=== PATIENT | female | born 1990 | race African-American/Black ===

== ENCOUNTER 2017-06-12 16:26 | Emergency (ER) | payer OTHER ==
[2017-06-12 17:13] LABS: #Basophils 0.1 thou/uL (0.0-0.2); #Eosinphils 0.1 thou/uL (0.0-0.7); #Monocytes 0.5 thou/uL (0.11-0.59); #Neutrophils 2.2 thou/uL (1.40-6.50); %Basophils 1.7 % (0.0-1.0); %Eosinophils 2.2 % (0.0-10.0); %Lymphocytes 25.4 % (21.0-51.0); %Monocytes 12.4 % (0.0-10.0); Hematocrit 25.8 % (36.0-47.0); Mean Platelet Volume 7.4 fL (7.4-10.4); Red Blood Cell (RBC) Count 3.23 mill/uL (4.20-5.40); White Blood Cell (WBC) Count 3.7 thou/uL (4.8-10.8)
[2017-06-12 17:30] LABS: ALT (SGPT) 17 U/L (8-55); AST (SGOT) 19 U/L (5-34); Alkaline Phosphatase 134 U/L (40-150); Anion Gap 12 mmol/L (10-20); BUN (Urea Nitrogen) 7 mg/dL (7.0-18.7); Bilirubin, Total 0.6 mg/dL (0.2-1.2); Calc. Creatinine Clearance 0 mL/min (70-130); Calcium 8.9 mg/dL (7.8-10.44); Carbon Dioxide 23 mmol/L (22-29); Chloride 105 mmol/L (98-107); Estimated GFR-MDRD Greater than 90; Globulin 3.5 g/dL (2.4-3.5); Protein, Total 6.6 g/dL (6.0-8.3)
[2017-06-12 18:39] LABS: Bilirubin Negative (Negative); Blood, Urine Negative (Negative); Glucose, Urine (Dipstick) Negative (Negative); Ketone, Urine Negative (Negative); Nitrite Negative (Negative); Protein, Urine (Dipstick) Negative (Neg-Trace)
[2017-06-12 18:41] LABS: Bacteria/HPF 2+ HPF (None Seen); Hyaline Casts/LPF 0-3 HYALINE CAST LPF (0-3 Hyaline)
[2017-06-12 18:49] LABS: Amphetamine Not Detected (NotDetected); Methadone Not Detected (NotDetected); Methamphetamine Not Detected (NotDetected)
--- NOTE | 2017-06-12 19:49 | RAD ---
RADIOGRAPH CHEST 1 VIEW: 06/12/17 HISTORY: 26-year-old female with tachycardia. FINDINGS: There are no air space densities, pulmonary edema, pneumothorax, or cardiomegaly. The lateral costo phrenic angles are sharp. IMPRESSION: No acute cardiopulmonary findings. benjamin [] POS: [facility]
[2017-06-12] MEDS ORDERED: cefTRIAXone\\ROCEPHIN 1 GM VIAL ONE (21:15)
== END 2017-06-12 23:05 | disposition home or self-care (01) ==
LOC: ERS 16:26
DX: N39.0 Urinary tract infection, site not specified (principal); D64.9 Anemia, unspecified; F17.210 Nicotine dependence, cigarettes, uncomplicated
CPT/HCPCS: 36415; 71010; 80053; 80306; 81003; 81015; 84443; 85025; 93005; 96361; 96365; J0696

== ENCOUNTER 2018-10-30 16:59 | Emergency (ER) | payer OTHER, SELFPAY ==
[2018-10-30] MEDS ORDERED: Ibuprofen 200 MG TAB ONE (17:32)
--- NOTE | 2018-10-30 18:20 | RAD ---
LEFT ANKLE THREE VIEWS: 10/30/18 HISTORY: Left ankle pain. Ankle mortise and talar dome are intact. No acute fracture or dislocation. No evidence of joint effusion. IMPRESSION: No acute osseous abnormalities are demonstrated. POS: BST
--- NOTE | 2018-10-30 18:22 | RAD ---
LEFT FOOT THREE VIEWS: 10/30/18 HISTORY: Left foot pain. FINDINGS: Lisfranc joint alignment is anatomic. Plantar arch is maintained. No acute fracture, dislocation or a ggressive osseous erosions. Mild hallux valgus. IMPRESSION: No acute osseous abnormalities are demonstrated. POS: BST
== END 2018-10-30 18:16 | disposition home or self-care (01) ==
LOC: ERS 16:59
DX: S93.402A Sprain of unspecified ligament of left ankle, initial encounter (principal); D64.9 Anemia, unspecified; F17.210 Nicotine dependence, cigarettes, uncomplicated; W23.0XXA Caught, crushed, jammed, or pinched between moving objects, initial encounter

== ENCOUNTER 2018-11-07 01:02 | Emergency (ER) | payer SELFPAY | END 2018-11-07 04:33 | disposition left against medical advice (07) | LOC: ERS 01:02 | DX: Z53.21 Procedure and treatment not carried out due to patient leaving prior to being seen by health care provider (principal) | CPT/HCPCS: 93005 ==

== ENCOUNTER 2020-08-09 23:54 | Emergency (ER) | payer SELFPAY ==
[2020-08-10] MEDS ORDERED: Lidocaine Viscous Sol 2% 15 ml UD Cup ONE (00:27)
== END 2020-08-10 01:56 | disposition home or self-care (01) ==
LOC: ERS 23:54
DX: T16.2XXA Foreign body in left ear, initial encounter (principal)
CPT/HCPCS: 99282

== ENCOUNTER 2021-11-05 07:50 | Outpatient (CLI) | payer OTHER | END 2021-11-05 07:51 | disposition home or self-care (01) | LOC: BICULT 07:50 | PROVIDERS: ATTEND Family Medicine | DX: O09.892 Supervision of other high risk pregnancies, second trimester (principal); Z3A.20 20 weeks gestation of pregnancy | CPT/HCPCS: 76805 ==